=== PATIENT | female | born 1970 | race American Indian/Alaskan Native ===

== ENCOUNTER 2016-10-28 06:53 | Day surgery (SDC) | payer MEDICAID ==
[2016-10-28] MEDS ORDERED: ECOTRIN PO ONE (07:10)
[2016-10-28 07:40] LABS: Basophils % (Auto) 0.4 % (0.0-1.8); Eosinophils % (Auto) 1.1 % (0.0-4.3); Hematocrit 44.6 % (30.3-42.9); Hemoglobin 14.7 gm/dl (10.1-14.3); Mean Corpuscular HGB Conc 33 % (30-34); Mean Corpuscular Hemoglobin 31 pg (28-32); Mean Corpuscular Volume 93 fl (79-97); Platelet Count 164 K/mm3 (140-440); Red Blood Count 4.82 M/mm3 (3.65-5.03); Red Cell Distribution Width 14.8 % (13.2-15.2); White Blood Count 9.1 K/mm3 (4.5-11.0)
[2016-10-28 07:48] LABS: INR 0.94 (0.87-1.13)
[2016-10-28 07:51] LABS: Anion Gap 21 mmol/L; BUN/Creatinine Ratio 13.75; Blood Urea Nitrogen 11 mg/dL (7-17); Calcium 9.2 mg/dL (8.4-10.2); Carbon Dioxide 20 mmol/L (22-30); Chloride 103.2 mmol/L (98-107); Glucose 97 mg/dL (65-100); Potassium 3.6 mmol/L (3.6-5.0); Sodium 141 mmol/L (137-145)
[2016-10-28] MEDS ORDERED: NACL 0.9% 500 ML 500 ML IV SCH (08:00)
[2016-10-28] MEDS ORDERED: HEPARIN/NS 5000 UNIT/500ML(CATH LAB) 1,000 ML IR ONE (08:12)
[2016-10-28] MEDS ORDERED: HEPARIN 10,000 UNITS/10 ML ONE (08:12)
[2016-10-28] MEDS ORDERED: XYLOCAINE 2% INFILTRATI ONE (08:12)
[2016-10-28] MEDS ORDERED: CALAN ONE (08:12)
[2016-10-28] MEDS ORDERED: VERSED ONE (08:12)
[2016-10-28] MEDS ORDERED: NITROGLYCERIN SYRINGE 3 ML ONE (08:13)
[2016-10-28] MEDS: SUBLIMAZE ONE ×3 (08:45→09:09)
--- NOTE | 2016-10-28 09:31 | Discharge Summary ---
Short Stay Discharge Plan Activity: advance as tolerated Diet: low fat, low cholesterol, low salt Special Instructions: other (POST CARDIAC CATH INSTRUCTIONS) Follow up with: CRISSY LOPEZ MD [Primary Care Provider] - 7 Days YANIV STRINGER MD [Staff Physician] - 7 Days
[2016-10-28] MEDS ORDERED: ZOFRAN IV PRN (10:06)
[2016-10-28] MEDS ORDERED: ULTRAM PO PRN (10:09)
[2016-10-28 11:51] VITALS: BP 130/76
--- NOTE | 2016-10-29 16:49 | Cardiac Catherization Report ---
HISTORY: The patient is a 46-year-old female with 3 risk factors for coronary artery disease who has been experiencing angina-like symptoms with mild activity despite medical therapy. She had a stress test last year that was negative. Coronary angiography was recommended. PROCEDURE: Left heart catheterization, ventriculography, and coronary angiography via the right radial artery using 5-Italian catheters including 3.5 left Jersey pigtail catheter and AR1. COMPLICATIONS: None. ESTIMATED BLOOD LOSS: 10-20 mL. TISSUE SAMPLE: None. SEDATION: Intravenous Versed and fentanyl. PREPROCEDURE DIAGNOSIS: Angina. POSTPROCEDURE DIAGNOSIS: Essentially normal coronary arteries. HEMODYNAMICS: Central aortic pressure 110/70, left ventricular pressure 114/70 ANGIOGRAPHIC RESULTS: 1. Left ventricle: The ventriculogram reveals a normal sized left ventricle with normal systolic function. The ejection fraction is 60%-65%. 2. Right coronary artery: This vessel is a dominant vessel and there are mild intimal irregularities. There were no remarkable lesions. The serial images of the right coronary artery, it is evident that spasm develops in the very proximal portion causing a 50% stenosis. 3. Left coronary artery: This vessel is free of disease, only mild intimal irregularities at present. FINAL IMPRESSION: Symptoms consistent with angina in a patient with 3 risk factors for coronary artery disease: The coronaries are essentially normal and left ventricular function is normal. I suspect that the chest pain may be due to her severe lung disease. PLAN: Office follow up within 7 days. Aggressive medical therapy, CAD risk factor modification. ___ JOB# [id number] ARLETTE/KYM
== END 2016-10-28 12:05 | disposition home or self-care (01) ==
LOC: OPU 06:53
PROVIDERS: ATTEND Internal Medicine
DX: I25.119 Atherosclerotic heart disease of native coronary artery with unspecified angina pectoris (principal); J45.909 Unspecified asthma, uncomplicated; E78.5 Hyperlipidemia, unspecified; I10 Essential (primary) hypertension; Z88.8 Allergy status to other drugs, medicaments and biological substances; Z87.891 Personal history of nicotine dependence; Z79.899 Other long term (current) drug therapy
CPT/HCPCS: 36415; 80048; 85025; 85610; 85730; 93005; 93010; 93458; 96374; C1894; J1644; J2250; J2405; J3010; J7040; Q9967